=== PATIENT | male | born 1960 | race Caucasian/White ===

== ENCOUNTER → 2021-08-01 14:10 | Outpatient (CLI) | payer OTHER, SELFPAY ==
--- NOTE | ~2021-08-01 | XR_ITS ---
XR shoulder LT min 2V 08/01/2021 14:33 INDICATION: Left shoulder pain PROCEDURE: 4 views left shoulder COMPARISON: No prior studies for comparison. FINDINGS: Fracture, dislocation or subluxation is not identified. The soft tissues appear within norm al limits. No foreign bodies are identified. IMPRESSION: 1: NO ACUTE BONE OR JOINT ABNORMALITY IDENTIFIED. Reviewed, dictated and finalized at location A.
== END ==
PROVIDERS: PCP Family Medicine; Visit Provider Physician Assistant
DX: M25.512 Pain in left shoulder (principal)
CPT/HCPCS: 73030

== ENCOUNTER 2023-05-20 08:04 | Outpatient (CLI) | payer OTHER, SELFPAY ==
--- NOTE | ~2023-05-20 | US_ITS ---
EXAMINATION: US scrotum doppler DATE: 05/20/2023 09:15 INDICATION: Left testicular swelling TECHNIQUE: Testicular sonogram utilizing grayscale and Doppler COMPARISON: None. FINDINGS: The right testis measures 5.1 x 2.7 x 2.9 cm. The left testis measures 5.2 x 2.7 cm. There is normal vascular flow to both testes. The right epididymis contains a 3 mm cyst or spermatocele. Th e left epididymis is normal with normal vascular flow. There is a large left hydrocele. IMPRESSION: 1. Large left hydrocele. Reviewed, dictated and finalized at location L. IMPRESSION: 1. Large left hydrocele.
== END 2023-05-20 08:05 | disposition home or self-care (01) ==
LOC: ANHIMG 08:06
PROVIDERS: PCP Family Medicine; Visit Provider Family Medicine
DX: N43.3 Hydrocele, unspecified (principal)
CPT/HCPCS: 76870; 93976

== ENCOUNTER 2023-12-10 07:25 | Outpatient (CLI) | payer OTHER, SELFPAY ==
--- NOTE | ~2023-12-10 | US_ITS ---
US scrotum doppler DATE: 12/10/2023 08:42 INDICATION: Hydrocele TECHNIQUE: Real-time imaging and Doppler analysis of the scrotal contents COMPARISON: 05/20/2023 scrotal ultrasound FINDINGS: There is homogeneous echotexture and symmetric normal vascularity of the testicles. The rig ht testicle measures 5.1 x 3.1 x 2.5 cm, the left testicle 5.1 x 2.7 x 3.2 cm. Approximately 4 mm cyst of the head of the right epididymis. Large left hydrocele is again noted. No evidence of varicoceles. IMPRESSION: Large left varicocele Normal testicles Reviewed, dictated and finalized at Location A. Reviewed, dictated and finalized at location B. [employer]
== END 2023-12-10 07:26 | disposition home or self-care (01) ==
PROVIDERS: PCP Family Medicine; Visit Provider Urology
DX: N43.3 Hydrocele, unspecified (principal); I86.1 Scrotal varices; N50.3 Cyst of epididymis
CPT/HCPCS: 76870; 93976